=== PATIENT | female | born 1980 | race Caucasian/White ===

== ENCOUNTER 2017-11-28 06:02 | Day surgery (SDC) | payer OTHER ==
[2017-11-28] MEDS ORDERED: LIDOCAINE 4% SOLUTION 50 ML BTL (07:34)
[2017-11-28] MEDS ORDERED: FENTAnyl 50 MCG/ML VIAL (08:02)
[2017-11-28] MEDS ORDERED: MIDAZOLAM 1 MG/ML 2 ML INJ ×2 (08:02)
== END 2017-11-28 10:04 | disposition home or self-care (01) ==
LOC: GIL 06:02
DX: K29.30 Chronic superficial gastritis without bleeding (principal); K20.8 Other esophagitis
CPT/HCPCS: 43239; 84703; 88305; 88312